=== PATIENT | male | born 1995 | race Caucasian/White ===

== ENCOUNTER 2018-06-17 23:52 | Emergency (ER) | payer OTHER ==
[2018-06-18] MEDS ORDERED: PROPARACAINE 0.5% OPHTH DROPS 15 ML BTL RIGHT EYE STA (00:11)
[2018-06-18] MEDS ORDERED: ERYTHROMYCIN 5 MG/GM OPHTH OINT 3.5 GM TUBE RIGHT EYE STA (00:28)
[2018-06-18] MEDS ORDERED: DIPH,PERTUS(ACELL)TETVAC-LF 0.5 ML VIAL IM ONE (00:30)
--- NOTE | 2018-06-18 00:36 | ED ---
ENT HPI - General Chief complaint: ENT Stated complaint: FB EYE Time Seen by Provider: 06/18/18 00:03 Source: patient, RN notes reviewed Mode of arrival: ambulatory Limitations: no limitations - History of Present Illness Initial comments: This is a 22-year-old male who presents to the emergency department with chief complaint of right eye foreign body. Patient states a couple of hours ago he was working under his car. He states that he has a foreign body sensation. He denies any vision changes, blurred vision or vision loss. He denies any other injuries or trauma. He states he does not wear contact lenses. Patient is unsure if he is up-to-date with his tetanus vaccination. Denies recent fevers or chills, chest pain or shortness of breath, abdominal pain, nausea or vomiting. - Related Data Previous Rx's Medication Instructions Recorded Cyclobenzaprine [Flexeril] 1 - 2 tab PO TID #20 tablet 07/16/15 Ibuprofen [Motrin] 600 mg PO Q6HR PRN #40 day 07/16/15 Allergies Allergy/AdvReac Type Severity Reaction Status Date / Time No Known Allergies Allergy Verified 06/18/18 00:02 Review of Systems ROS Statement: Those systems with pertinent positive or pertinent negative responses have been documented in the HPI. ROS Other: All systems not noted in ROS Statement are negative. Past Medical History Past Medical History: No Reported History History of Any Multi-Drug Resistant Organisms: None Reported Past Surgical History: No Surgical Hx Reported Past Psychological History: No Psychological Hx Reported Smoking Status: Never smoker Past Alcohol Use History: None Reported Past Drug Use History: None Reported General Exam - General Exam Comments Initial Comments: General: Awake and alert, well-developed; in no apparent distress. HEENT: Head atraumatic, normocephalic. Pupils are equal, round and reactive to light. Extraocular movements intact. Right conjunctiva is injected. On fluorescein staining, a corneal abrasion at approximately 9:00 in relation to the iris is identified. A small metallic foreign object is identified. This was easily extracted with cotton tip applicator. Negative Lane's test. No foreign bodies identified under superior or inferior eyelids. Oropharynx moist without erythema or exudate. Neck: Supple. Normal ROM. Cardiovascular: Regular rate and rhythm. No murmurs, rubs or gallops. Chest symmetrical. Respiratory: Lungs clear to auscultation bilaterally. No wheezes, rales or rhonchi. Normal respiratory effort with no use of accessory muscles. Musculoskeletal: Normal ROM, no tenderness bilateral upper and lower extremities. Ambulating normally. Skin: [place], warm and dry. Neurological: Alert and oriented x3. CN II-XII grossly intact. Speech is fluent and answers are appropriate. No focal neuro deficits. Psychiatric: Normal mood and affect. No overt signs of depression or anxiety noted. Limitations: no limitations Course Vital Signs 06/17/18 23:59 Temperature 97.6 F Pulse Rate 74 Respiratory 16 Rate Blood Pressure 159/84 O2 Sat by Pulse 99 Oximetry Medical Decision Making - Medical Decision Making This is a 22-year-old male who presents to the emergency department with chief complaint of right eye foreign body. On fluorescein staining a small metallic object is identified. This was easily extracted with a cotton-tipped applicator. There is a corneal abrasion identified. Negative Lane's test. Patient will be started on erythromycin ointment. He is not a contact lens wearer. No vision changes. Patient is provided with contact information follow up with ophthalmology. Patient made up-to-date with tetanus vaccination. He is in agreement with plan and voices understanding. All questions were answered. Patient will be discharged home at this time. He is in no acute distress. Disposition Clinical Impression: Corneal foreign body, Corneal abrasion Disposition: HOME SELF-CARE Condition: Good Instructions: Eye Foreign Body (ED), Corneal Abrasion (ED) Additional Instructions: Please follow-up with ophthalmology if worsening of symptoms or no improvement of symptoms within 1-2 days. Please apply a 0.25cm ribbon of erythromycin ointment to the affected eye 4 times per day for the next 3-5 days. Please follow up with primary care provider within 1-2 days. Return to emergency department if symptoms should worsen or any concerns arise. Is patient prescribed a controlled substance at d/c from ED?: No Referrals: Pj Ontiveros DO [Primary Care Provider] - 1-2 days Jarod Villalpando MD [STAFF PHYSICIAN] - 1-2 days Time of Disposition: 00:35
[2018-06-18 00:54] VITALS: BP 144/78; PULSE 77; RESP 18; TEMP 98
== END 2018-06-18 00:53 | disposition home or self-care (01) ==
LOC: EC 23:52
DX: T15.01XA Foreign body in cornea, right eye, initial encounter (principal); Z23 Encounter for immunization
CPT/HCPCS: 65220; 90471; 90715; 99283